=== PATIENT | male | born 2000 | race Caucasian/White ===

== ENCOUNTER 2024-06-06 09:50 | Emergency (ER) | payer BC, SELFPAY ==
[2024-06-06 10:07] VITALS: BP 163/109
--- NOTE | 2024-06-06 11:48 | ED.GENMED ---
History of Present Illness
General
Chief Complaint: Crisis Evaluation
Source: patient
Exam Limitations: none
Time Seen by Provider: 06/06/24 10:33
Nursing documentation reviewed up to this point in time: agreed with
History of Present Illness
History of Present Illness:
Patient is a 23-year-old male who has an underlying history of anxiety depression brought by parents for evaluation. Patient has had insomnia and anxiety panic attacks over the past several days. He does drink alcohol daily and admits to using
alcohol and even nicotine to calm himself down and cope however recently because he was not sleeping he thought the alcohol was contributing to this and stopped drinking. He did drink on Thursday. He started to feel extremely anxious prior to him
not drinking. He is on chronic risperidone however his psychiatrist added sertraline and when that was started he became more anxious. She did recommend that he stop the medicine.
Patient is not sleeping parents are very concerned. Patient feels agitated. He reports panic attacks are much worse at nighttime in the dark. He does live with his girlfriend however has been staying with his parents over the past several days
He he does present tearful and anxious.
Patient mentioned that he just simply wants to feel better and when he was extremely anxious several days ago he felt that he was not going to be helped and mentioned thinking suicide was a way out however he reports he does not feel suicidal any
longer and never had a plan. He reports he only said that because he just 'did not want to feel this way anymore.'
He has no prior history of suicide attempts or thoughts.
He reports he ' actually feels afraid of .'
He reports for the past year he has been drinking as documented above to try to cope with his anxiety however felt that his drinking recently has been keeping him up affecting his sleep so his last drink was Thursday. He has no prior history of
alcohol withdrawal or DTs. He denies any actual hallucinations, nausea vomiting.
Review of Systems
Review of Systems
Allergies reviewed?: Yes
Other source history: family
All Other Systems: ROS reviewed and negative except as documented in HPI and ROS
Constitutional: Reports no symptoms; Denies fever, fatigue or chills
Respiratory: Reports no symptoms
Cardiac: Reports no symptoms
ABD/GI: Reports no symptoms
: Reports no symptoms
Musculoskeletal: Reports no symptoms
Skin: Reports no symptoms
Neurological: Reports no symptoms
Psychiatric: Reports anxiety and other (does not feel suicidal no plan )
Phy Exam
General Physical Exam
General Presentation: no apparent distress
General age: appears stated age
General Skin: warm and dry
General Habitus: normal
General Mental: alert
General Hydration: appears well hydrated
Cardiovascular Exam
Cardiovascular Exam: regular rate/rhythm, no murmur and normal peripheral pulses
Pulmonary Exam
Pulmonary Exam: lungs clear and no respiratory distress
Neurological Exam
Neurological Exam: alert and oriented x3
Kole Coma Scale
Eye Opening: Spontaneous
Verbal Response: Oriented
Motor Response: Obeys Commands
GCS Total Score: 15
Musculoskeletal Exam
Musculoskeletal Exam: full ROM
Skin Exam
Skin Exam: normal color and warm/dry
Psychiatric Exam
Psychiatric Exam: anxious
Course
Orders/Labs/Results
Orders:
Orders
06/06/24 11:28
IV Insert/Care/Rem.- Treatment PRN
06/06/24 11:29
Crisis Consult Urgent
Reason for Consult: eval for anxiety /depression
06/06/24 11:42
Comprehensive Metabolic Panel Urgent
06/06/24 11:45
Complete Blood Count/With Diff Urgent
Drug Screen, Urine [Urine Drug Abuse Screen] Urgent
Date Specimen was Collected: 06/06/24
Time Specimen was Collected: 11:38
TSH Reflex To Free T4 Urgent
Abnormal Lab Results
06/06/24 06/06/24
11:42 11:45
Absolute Monos (auto) 0.7 H 10^3/uL
(0.1-0.6)
Albumin 5.1 H g/dl
(3.5-5.0)
06/06/24 11:45
06/06/24 11:42
Vital Signs
Initial and Last Documented VS:
Initial Vital Signs
Temp Pulse Resp BP Pulse Ox
98.2 F 98 16 163/109 98
06/06/24 10:07 06/06/24 10:07 06/06/24 10:07 06/06/24 10:07 06/06/24 10:07
Last Documented Vital Signs
Temp Pulse Resp BP Pulse Ox
98.2 F 98 20 134/84 99
06/06/24 10:07 06/06/24 12:53 06/06/24 12:53 06/06/24 12:53 06/06/24 12:53
MDM/Problems Addressed
MDM/Problems Addressed:
As documented patient is a 23-year-old with anxiety depression presents here for extreme anxiety not being able to sleep over the past several days. Prior to Thursday patient did drink alcohol every day however stopped because he thought this was
affecting his sleep. He presented here because he is not being able to sleep at all. He denies any actual suicidal thoughts or plan. He mentioned this word but reports he simply does not want to continue feeling this way and feeling . He has no
prior suicidal thoughts in his past he is not suicidal now he has no plan of care. He presents awake alert he is anxious however nontachycardic with no recent fever chills. He He He is medically cleared his labs unremarkable.
Patient was evaluated by crisis who does recommend intensive inpatient.
Patient request something for sleep however with history of recent alcohol use and the fact the patient recently stopped on Thursday will give patient Valium taper to prevent alcohol withdrawal which will also help with sleep and anxiety.
Patient with good social support via family. stable for d/c home.
*Critical Care Note
Total Time (30-74mins, 75-104mins- exclusive of procedures): Not Applicable
ED Attending Note
-
Portions of this chart may have been created with voice recognition software.� Occasional wrong word or��sound alike� substitutions may have occurred due to the inherent limitations of voice recognition software.
Discharge Plan
Departure
Patient Disposition: Home (Routine Discharge)
Date of Disposition: 06/06/24
Time of Disposition: 13:52
Patient with high blood pressure during this ER visit?: Yes
Condition: Fair
Covid-19: Not Applicable
Discharge Problem:
Acute anxiety
Instructions: Anxiety, Adult (DC), BLOOD PRESSURE
Prescriptions:
New
diazepam [Valium] 10 mg tablet
See Rx Instructions .ROUTE .COMPLEX Qty: 10 0RF
Rx Instructions:
day 1: 10 mg every 6 hours; day 2: 10 mg orally every 8 hours; day 3: 10 mg orally every 12 hours; day 4: 10 mg at night
Referrals:
Alfredo Aguiar MD [Family Provider] -
Activity Restrictions/Additional Instructions:
Follow-up with intensive outpatient treatment as arranged by crisis. In addition please follow-up with your psychiatrist. A prescription for diazepam taper will be sent to your pharmacy for alcohol withdrawal/anxiety.
Take as directed day 1, 10 mg every 6 hours, day 2: 10 mg every 8 hours, day 3: 10 mg orally every 12 hours and day 4: 10 mg at night.
return if any worsening of symptoms take only as directed. No drinking alcohol taking this medication no driving while taking this medication. This medication may cause sedation. Return to the ER if any worsening of symptoms including worsening
anxiety any thoughts of harming yourself or others or any further concerns.
Return if any sweats nausea vomiting hallucinations or any further concerns.
Interventions
Interventions:
*Risk Screen - Suicide Last Done: 06/06/24 09:52
*General Assessment Last Done: 06/06/24 10:34
*Neglect/Abuse Screening Last Done: 06/06/24 10:07
ED- Fall Risk Assessment Last Done: 06/06/24 10:38
*ED COVID-19 Vaccine History Last Done: 06/06/24 10:34
*Nursing Disposition Last Done: 06/06/24 14:07
ED-Psychological Assessment Last Done: 06/06/24 10:35
Discharge Date and Time
Discharge Date/Time: 06/06/24 14:14
Print Language: YI
[2024-06-06 12:03] LABS: % Basophils 0.7 % (0-2); % Eosinophils 0.7 % (0-6); % Immature Granulocytes 0.5 % (0-0.5); % Lymphocytes 25.4 % (20.5-51.1); % Monocytes 7.8 % (1.7-9.3); % Neutrophils 64.9 % (42.2-75.2); Absolute Basophils 0.1 10^3/uL (0-0.2); Absolute Eosinophils 0.1 10^3/uL (0-0.7); Absolute Lymphocytes 2.2 10^3/uL (1.2-3.4); Absolute Monocytes 0.7 10^3/uL (0.1-0.6); Absolute Neutrophils 5.6 10^3/uL (1.4-6.5); Hematocrit 46.3 % (39.0-52.0); Hemoglobin 15.3 g/dL (13.0-18.0); Mean Corpuscular Hgb 28.1 pg (27.0-31.0); Mean Platelet Volume 9.9 fL (7.4-10.4); Nucleated Red Blood Cells % 0 % (-); Platelet Count 323 10^3/uL (130-400); Red Blood Cell Count 5.45 10^6/uL (4.70-6.10); Red Cell Dist. Width 12.9 % (11.5-14.5); White Blood Cell Count 8.6 10^3/uL (4.8-10.8)
[2024-06-06 12:13] LABS: ALT (SGPT) 26 U/L (0-50); AST (SGOT) 28 U/L (17-59); Albumin 5.1 g/dl (3.5-5.0); Alkaline Phosphatase 72 U/L (38-126); Blood Urea Nitrogen 14 mg/dl (9-20); Calcium 9.8 mg/dl (8.4-10.2); Carbon Dioxide 26 mmol/L (22-30); Chloride 103 mmol/L (98-107); Glucose 95 mg/dl (70-99); Potassium 4.6 mmol/L (3.5-5.1); Sodium 140 mmol/L (135-145); Total Bilirubin 0.9 mg/dl (0.2-1.3); Total Protein 7.9 g/dl (6.3-8.2); eGFR > 60.00
[2024-06-06 12:44] LABS: TSH Reflex To Free T4 0.75 uIU/ml (0.47-4.68)
[2024-06-06 12:53] VITALS: BP 134/84
[2024-06-06 13:10] LABS: Amphetamines Negative (Negative); Barbiturates Negative (Negative); Benzodiazepines Negative (Negative); Buprenorphine Negative (Negative); Cocaine Negative (Negative); Marijuana Negative (Negative); Methadone Negative (Negative); Methamphetamines Negative (Negative); Opiates Negative (Negative); Phencyclidine Negative (Negative); Tricyclic Antidepressants Negative (Negative)
== END 2024-06-06 14:14 | disposition home or self-care (01) ==
LOC: EMR 09:50
PROVIDERS: Nurse Practitioner; EMERGENCY PHYSICIAN Emergency Medicine; FAMILY PHYSICIAN Internal Medicine
DX: F41.9 Anxiety disorder, unspecified (principal); F32.A Depression, unspecified; F10.90 Alcohol use, unspecified, uncomplicated
CPT/HCPCS: 99283; 80053; 80306; 84443; 85025